=== PATIENT | female | born 1985 | race Caucasian/White ===

== ENCOUNTER 2020-01-04 10:43 | Emergency (ER) | payer OTHER, SELFPAY ==
[2020-01-04 10:50] VITALS: BP 124/73; PULSE 73; RESP 20; TEMP 36.8; O2SAT 100
--- NOTE | 2020-01-04 10:53 | ED.GENADULT ---
HPI - General Adult General Chief complaint: Skin/Abscess/Foreign Body Stated complaint: rash arms neck and chin Time Seen by Provider: 01/04/20 11:08 Source: patient Mode of arrival: ambulatory Limitations: no limitations History of Present Illness HPI narrative: 34-year-old female patient presents [facility] with complaints of a rash that started yesterday patient. Patient states that she has had this rash in various places mostly to the upper extremities and neck. Patient states it started off as a flight rounds red area that produces a little bubble/bump . To the center of it and then goes away on its own. Patient states the rash is itchy. Denies any new lotions, detergents or soaps. Denies starting any new medications. Patient denies any chest pain, shortness of breath or trouble swallowing. Patient states that she is very sensitive to irritants and does get rashes often. Patient states she has been to Benadryl for her symptoms. Related Data Home Medications Medication Instructions Recorded Confirmed buspirone 5 mg PO BID 01/04/20 01/04/20 Allergies Allergy/AdvReac Type Severity Reaction Status Date / Time Sulfa (Sulfonamide Allergy Mild Rash Unverified 01/04/20 10:53 Antibiotics) Review of Systems Review of Systems: Narrative: CONSTITUTIONAL: Denies fever, chills, or sweats. EYES: Denies visual changes, redness, or discharge. ENT: Denies rhinorrhea, congestion, sore throat, or otalgia. CARDIOVASCULAR: Denies chest pain, palpitations, or edema. RESPIRATORY: Denies cough or dyspnea. GASTROINTESTINAL: Denies abdominal pain, nausea, vomiting, or diarrhea. GENITOURINARY: Denies dysuria or hematuria. SKIN: Positive rash with itching. MUSCULOSKELETAL: Denies back pain, joint pain, or myalgia. NEUROLOGIC: Denies headache, numbness, or weakness. PSYCHIATRIC: Denies anxiety or depression. PMFSH Comments At the time of my signature I agree with nursing past medical history, surgical, social, and family history. There is no relevant family history pertinent to the presenting complaint. Exam Narrative: Exam Narrative: GENERAL: Well-appearing, well-nourished, and in no acute distress. HEAD: Normocephalic, atraumatic. EYES: PERRLA and EOMI. ENT: Nares clear, no rhinorrhea or epistaxis. Mucous membranes moist. NECK: Supple. No lymphadenopathy CHEST: Clear to auscultation. No respiratory distress. HEART: Regular rate and rhythm. No murmur heard. Normal peripheral pulses. ABDOMEN: Soft, nontender, nondistended, normal active bowel sounds. EXTREMITIES: Normal range of motion. No edema. SKIN: Warm, dry, patient has a rash noted to the left wrist with a flat round macule present. Patient does have some flat brown macules noted to the right side of the lateral neck. Patient does have some little flesh-colored scaly bumps noted behind the right arm. NEURO: No focal deficits. Alert and oriented x3. Course Vital Signs Vital signs: Vital Signs Temperature 36.8 C 01/04/20 10:50 Pulse Rate 73 01/04/20 10:50 Respiratory Rate 01/04/20 10:50 Blood Pressure 124/73 01/04/20 10:50 Pulse Oximetry 100 01/04/20 10:50 Temperature 36.8 C 01/04/20 10:50 Pulse Rate 73 01/04/20 10:50 Respiratory Rate 01/04/20 10:50 Blood Pressure 124/73 01/04/20 10:50 Pulse Oximetry 100 01/04/20 10:50 Vital signs reviewed. Medical Decision Making Differential Diagnosis Differential Diagnosis: Differential diagnosis: Contact dermatitis, poison reina, poison sumac, psoriasis, eczema, allergic reaction, drug reaction, scabies, tinea syphilis, lung disease, viral exanthema, pityriasis, erythema multiforme. Discussed with patient that this does look and appear to be some type of reaction to an irritated, but it is hard to tell exactly what. Discussed with patient she can continue taking the Benadryl and I will also give her steroid ointment for the rash. Discussed with patient that she may also want to take
== END 2020-01-04 11:20 | disposition home or self-care (01) ==
PROVIDERS: Emergency Provider Nurse Practitioner Family
DX: L24.9 Irritant contact dermatitis, unspecified cause (principal)
CPT/HCPCS: 99203; G0463